=== PATIENT | male | born 1990 | race Caucasian/White ===

== ENCOUNTER 2020-07-28 22:16 | Emergency (ER) | payer OTHER ==
[~2020-07-28] VITALS: Ht 177.8 cm; Wt 79.2 kg
--- NOTE | 2020-07-28 22:45 | NUR ---
pt reports coming into ed today due to LLQ/RLQ abdominal pain and back pain. denies burning on urination. pt reports nausea and occassional vomitting, denies diarrhea, also states "well carlo been partying and drinking for the past week, i came out here from [facility] we had some deaths in the family from covid. i think the drive is why my back hurts." pt resting on gurney in gown, nad, appears comfortable, etoh odor noted. placed on spo2/bp monitoring. wctm. waiting for labs/rads.
[2020-07-28 22:58] LABS: BASOPHILS % (AUTO) 1 % (0-1); EOSINOPHILS % (AUTO) 1 % (1-7); LYMPHOCYTES % (AUTO) 41 % (22-44); MEAN CORPUSCULAR HEMOGLOBIN 33.7 pg (27.5-34.5); MEAN CORPUSCULAR HGB CONC 34.6 g/dL (33.2-36.2); MEAN PLATELET VOLUME 7.3 fL (7.4-10.4); MONOCYTES % (AUTO) 16 % (2-9); NEUTROPHILS % (AUTO) 41 % (42-75); PLATELET COUNT 95 x10^3/uL (130-400); RED BLOOD COUNT 4.47 x10^6/uL (4.38-5.82); RED CELL DISTRIBUTION WIDTH 13.9 % (9.4-14.8)
[2020-07-28 22:59] LABS: MD NO
--- NOTE | 2020-07-28 23:03 | NUR ---
PT BACK FROM RADIOLOGY AT THIS TIME, NAD, RESTING ON GURNEY, APPEARS COMFORTABLE, VSS, PROVIDED URINAL FOR URINE SAMPLE. DENIES ADDITIONAL NEEDS, WCTM .
[2020-07-28] MEDS ORDERED: CLONAZEPAM PO (23:05)
[2020-07-28 23:12] LABS: ALANINE AMINOTRANSFERASE 187 U/L (12-78); ALBUMIN 4.5 g/dL (3.4-5.0); ANION GAP 12 mmol/L (5-15); CALCIUM 8.8 mg/dL (8.5-10.1); CHLORIDE 104 mmol/L (98-107); CREATININE 0.97 mg/dL (0.7-1.3)
[2020-07-28 23:22] LABS: ALKALINE PHOSPHATASE 69 U/L (45-117); TOTAL PROTEIN 8.3 g/dL (6.4-8.2)
[2020-07-28 23:34] LABS: MICROSCOPIC INDICATED
[2020-07-28] MEDS ORDERED: POTASSIUM CHLORIDE 20 MEQ TAB.ER.PRT ONE (23:54)
[2020-07-28 23:58] VITALS: BP 139/96
[2020-07-29] MEDS ORDERED: POTASSIUM CHLORIDE 20 MEQ TAB.ER.PRT PO ONE
--- NOTE | 2020-07-29 00:15 | NUR ---
Patient given discharge instructions and they have confirmed that they understand the instructions. Patient ambulatory with steady gait. NAD, DENIES ADDITIONAL QUESTIONS OR NEEDS AT THIS TIME. NO PERSONAL BELONGINGS LEFT IN ROOM AFTER DC.
== END 2020-07-29 00:17 | disposition home or self-care (01) ==
LOC: ED 22:46
DX: K85.20 Alcohol induced acute pancreatitis without necrosis or infection (principal); F10.10 Alcohol abuse, uncomplicated; K59.00 Constipation, unspecified; R10.9 Unspecified abdominal pain; E87.6 Hypokalemia; Y90.0 Blood alcohol level of less than 20 mg/100 ml
CPT/HCPCS: 36415; 74021; 80053; 81001; 83690; 85025; 87086; 99284

== ENCOUNTER 2020-08-14 16:11 | Inpatient (IN) | payer SELFPAY ==
[~2020-08-14] VITALS: Ht 177.8 cm; Wt 84.3 kg
[~2020-08-14 16:11] MED LIST: CLONAZEPAM PO
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
[2020-08-14] MEDS ORDERED: SODIUM CHLORIDE FLUSH 10ML SYR IVF ONE (17:30)
[2020-08-14] MEDS ORDERED: LORazepam 2 MG/ML, 1ML IV ONE (17:30)
[2020-08-14] MEDS ORDERED: SODIUM CHLORIDE 0.9% 1,000 ML IV ONE (17:30)
[2020-08-14] MEDS ORDERED: MAGNESIUM SULFATE 1 GM, THIAMINE 100 MG, FOLIC ACID 1 MG in SODIUM CHLORIDE 0.9% 1,000 ML IV ONE (17:30)
[2020-08-14] MEDS ORDERED: FAMOTIDINE 20 MG/2 ML IVPush ONE (17:30)
--- NOTE | 2020-08-14 17:34 | NUR ---
PT SITTNG IN BED NO DISTRESS
[2020-08-14] MEDS ORDERED: FAMOTIDINE 20 MG/2 ML ONE (17:36)
[2020-08-14] MEDS ORDERED: LORazepam 2 MG/ML, 1ML ONE ×2 (17:36→20:54)
--- NOTE | 2020-08-14 17:43 | NUR ---
ADMIN MEDS NO DISTRESS
--- NOTE | 2020-08-14 18:31 | NUR ---
PT IN BED, MED REC COMPLETE.
[2020-08-14 18:33] LABS: BASOPHILS % (AUTO) 2 % (0-1); EOSINOPHILS % (AUTO) 0 % (1-7); LYMPHOCYTES % (AUTO) 14 % (22-44); MEAN CORPUSCULAR HEMOGLOBIN 34.6 pg (27.5-34.5); MEAN PLATELET VOLUME 7.1 fL (7.4-10.4); MONOCYTES % (AUTO) 10 % (2-9); NEUTROPHILS % (AUTO) 75 % (42-75); PLATELET COUNT 85 x10^3/uL (130-400); RED BLOOD COUNT 4.54 x10^6/uL (4.38-5.82); RED CELL DISTRIBUTION WIDTH 16.2 % (9.4-14.8)
[2020-08-14 18:42] LABS: ANION GAP 18 mmol/L (5-15); CALCIUM 7.9 mg/dL (8.5-10.1); CHLORIDE 107 mmol/L (98-107)
[2020-08-14 18:45] LABS: ALANINE AMINOTRANSFERASE 168 U/L (12-78); ALKALINE PHOSPHATASE 69 U/L (45-117); BILIRUBIN,TOTAL 1.1 mg/dL (0.2-1.0); CREATININE 0.96 mg/dL (0.7-1.3); TOTAL PROTEIN 8.2 g/dL (6.4-8.2)
[2020-08-14 19:07] LABS: ACETONE, SERUM Large (80mg/dL) (Negative)
[2020-08-14 19:18] LABS: MD SCAN
[2020-08-14] MEDS: D5%-LACTATED RINGERS 1,000 ML IV SCH ×2 (19:26→23:36)
--- NOTE | 2020-08-14 19:28 | NUR ---
PT IN BED, NO DISTRESS,
[2020-08-14 19:51] LABS: INTERNATIONAL NORMALIZED RATIO 0.96 (0.93-1.1); PROTHROMBIN TIME 10.3 Seconds (9.6-11.5)
--- NOTE | 2020-08-14 20:35 | NUR ---
PT IN BED NO DISTRESS
[2020-08-14] MEDS: LORazepam 2 MG/ML, 1ML IV PRN (20:58)
--- NOTE | 2020-08-14 20:59 | NUR ---
ADMIN ANXITY MED. CWIA 9. VSS
[2020-08-14] MEDS ORDERED: LORazepam 2 MG/ML, 1ML IV PRN ×2 (21:00)
[2020-08-14] MEDS ORDERED: ALUMINUM/MAG/SIMETHICONE 30 ML UDC PO PRN (21:00)
[2020-08-14] MEDS ORDERED: BISACODYL 10 MG SUPP PR PRN (21:00)
[2020-08-14] MEDS ORDERED: ONDANSETRON 2MG/ML, 2ML IV PRN (21:00)
[2020-08-14] MEDS ORDERED: POTASSIUM CHLORIDE 20 MEQ, MAGNESIUM SULFATE 1 GM, FOLIC ACID 1 MG, THIAMINE 200 MG in ... IV SCH (21:00)
[2020-08-14] MEDS ORDERED: MAALOX/HYOSCYAMINE/LIDOCAINE 45 ML BTL ONE (22:07)
--- NOTE | 2020-08-14 22:29 | NUR ---
pt a&ox4, says he is getting a little anxious at this time. iv site x2 intact, no swelling, no redness. pt on cr monitor. no acute distress at this time.
[2020-08-14 22:59] VITALS: BP 169/112
[2020-08-14] MEDS: DIPHENHYDRAMINE 50 MG CAPSULE PO PRN (23:09)
[2020-08-14] MEDS: LACTATED RINGERS 1,000 ML IV SCH (23:41)
[2020-08-14] MEDS ORDERED: POTASSIUM CHLORIDE 20 MEQ, MAGNESIUM SULFATE 1 GM, FOLIC ACID 1 MG, THIAMINE 200 MG, MV... IV SCH (23:48)
[2020-08-15 00:06] VITALS: BP 145/95
[2020-08-15] MEDS: LORazepam 2 MG/ML, 1ML IV PRN ×5 (02:54→19:28)
[2020-08-15 05:09] LABS: BASOPHILS % (AUTO) 1 % (0-1); EOSINOPHILS % (AUTO) 1 % (1-7); LYMPHOCYTES % (AUTO) 31 % (22-44); MEAN CORPUSCULAR HEMOGLOBIN 34.2 pg (27.5-34.5); MEAN CORPUSCULAR HGB CONC 33.7 g/dL (33.2-36.2); MEAN PLATELET VOLUME 7.4 fL (7.4-10.4); MONOCYTES % (AUTO) 13 % (2-9); NEUTROPHILS % (AUTO) 54 % (42-75); PLATELET COUNT 65 x10^3/uL (130-400); RED BLOOD COUNT 3.94 x10^6/uL (4.38-5.82); RED CELL DISTRIBUTION WIDTH 16.4 % (9.4-14.8)
[2020-08-15 05:11] LABS: MD NO
[2020-08-15 05:26] LABS: ALBUMIN 3.5 g/dL (3.4-5.0); ANION GAP 12 mmol/L (5-15); CHLORIDE 103 mmol/L (98-107)
[2020-08-15 05:31] LABS: ALANINE AMINOTRANSFERASE 142 U/L (12-78); ALKALINE PHOSPHATASE 56 U/L (45-117); BILIRUBIN,TOTAL 1.8 mg/dL (0.2-1.0); CREATININE 0.84 mg/dL (0.7-1.3); TOTAL PROTEIN 6.8 g/dL (6.4-8.2)
[2020-08-15] MEDS: LACTATED RINGERS 1,000 ML IV SCH ×3 (08:01→23:30)
[2020-08-15 08:34] VITALS: BP 166/110
[2020-08-15] MEDS: CHLORDIAZEPOXIDE 25 MG CAPSULE PO SCH ×3 (11:39→21:15)
[2020-08-15 14:20] VITALS: BP 166/105
[2020-08-15 19:14] VITALS: BP 159/114
[2020-08-15] MEDS ORDERED: MULTIVITAMIN 1 TABLET PO SCH ×2 (20:32→21:00)
[2020-08-15] MEDS ORDERED: POTASSIUM CHLORIDE 20 MEQ, MAGNESIUM SULFATE 1 GM, FOLIC ACID 1 MG, THIAMINE 200 MG in ... IV SCH (21:00)
[2020-08-15] MEDS: DIPHENHYDRAMINE 50 MG CAPSULE PO PRN (21:15)
[2020-08-15 22:10] VITALS: BP 154/104
[2020-08-16] MEDS: LORazepam 2 MG/ML, 1ML IV PRN ×7 (00:35→23:57)
[2020-08-16 00:53] VITALS: BP 159/121
[2020-08-16] MEDS: POTASSIUM CHLORIDE 20 MEQ, MAGNESIUM SULFATE 1 GM, FOLIC ACID 1 MG, THIAMINE 200 MG, MV... IV SCH (00:57)
[2020-08-16 04:45] LABS: BASOPHILS % (AUTO) 1 % (0-1); EOSINOPHILS % (AUTO) 1 % (1-7); LYMPHOCYTES % (AUTO) 24 % (22-44); MEAN CORPUSCULAR HEMOGLOBIN 34.2 pg (27.5-34.5); MEAN CORPUSCULAR HGB CONC 34.3 g/dL (33.2-36.2); MEAN PLATELET VOLUME 8.5 fL (7.4-10.4); MONOCYTES % (AUTO) 9 % (2-9); NEUTROPHILS % (AUTO) 65 % (42-75); PLATELET COUNT 51 x10^3/uL (130-400); RED BLOOD COUNT 4.19 x10^6/uL (4.38-5.82)
[2020-08-16 04:50] LABS: MD NO
[2020-08-16 04:53] LABS: CALCIUM 9.2 mg/dL (8.5-10.1); CHLORIDE 100 mmol/L (98-107)
[2020-08-16 05:23] LABS: ALANINE AMINOTRANSFERASE 209 U/L (12-78); ALBUMIN 3.8 g/dL (3.4-5.0); ALKALINE PHOSPHATASE 65 U/L (45-117); ANION GAP 13 mmol/L (5-15); BILIRUBIN,TOTAL 2.6 mg/dL (0.2-1.0); CREATININE 0.78 mg/dL (0.7-1.3); TOTAL PROTEIN 7.4 g/dL (6.4-8.2)
[2020-08-16] MEDS: CHLORDIAZEPOXIDE 25 MG CAPSULE PO SCH (05:53)
[2020-08-16 08:18] VITALS: BP 130/81
[2020-08-16] MEDS ORDERED: POTASSIUM CHLORIDE 20 MEQ TAB.ER.PRT PO ONE (09:00)
[2020-08-16] MEDS: LACTATED RINGERS 1,000 ML IV SCH ×2 (09:03→17:28)
[2020-08-16 13:22] VITALS: BP 141/107
[2020-08-16 19:14] VITALS: BP 151/104
[2020-08-16] MEDS: CHLORDIAZEPOXIDE 10 MG CAPSULE PO PRN (21:16)
[2020-08-16 22:32] VITALS: BP 164/118
[2020-08-17 00:08] VITALS: BP 160/112
[2020-08-17 01:02] VITALS: BP 139/83
[2020-08-17] MEDS: LACTATED RINGERS 1,000 ML IV SCH ×2 (01:31→09:04)
[2020-08-17] MEDS: POTASSIUM CHLORIDE 20 MEQ, MAGNESIUM SULFATE 1 GM, FOLIC ACID 1 MG, THIAMINE 200 MG, MV... IV SCH (02:14)
[2020-08-17 07:03] LABS: BASOPHILS % (AUTO) 1 % (0-1); EOSINOPHILS % (AUTO) 5 % (1-7); LYMPHOCYTES % (AUTO) 34 % (22-44); MEAN CORPUSCULAR HEMOGLOBIN 34.4 pg (27.5-34.5); MEAN CORPUSCULAR HGB CONC 34.2 g/dL (33.2-36.2); MEAN PLATELET VOLUME 8.3 fL (7.4-10.4); MONOCYTES % (AUTO) 12 % (2-9); NEUTROPHILS % (AUTO) 48 % (42-75); PLATELET COUNT 54 x10^3/uL (130-400); RED BLOOD COUNT 4.25 x10^6/uL (4.38-5.82); RED CELL DISTRIBUTION WIDTH 15.6 % (9.4-14.8)
[2020-08-17 07:05] LABS: MD NO
[2020-08-17 07:12] LABS: ALANINE AMINOTRANSFERASE 221 U/L (12-78); ALBUMIN 3.5 g/dL (3.4-5.0); ANION GAP 8 mmol/L (5-15); CALCIUM 8.8 mg/dL (8.5-10.1); CHLORIDE 106 mmol/L (98-107); CREATININE 0.66 mg/dL (0.7-1.3)
[2020-08-17 07:14] LABS: ALKALINE PHOSPHATASE 65 U/L (45-117); TOTAL PROTEIN 7.2 g/dL (6.4-8.2)
[2020-08-17 07:15] VITALS: BP 153/102
[2020-08-17] MEDS: CHLORDIAZEPOXIDE 10 MG CAPSULE PO PRN (07:28)
[2020-08-17] MEDS ORDERED: THIA100T67 PO (11:26)
[2020-08-17] MEDS ORDERED: FOLI1TAB32 PO (11:26)
== END 2020-08-17 13:43 | disposition home or self-care (01) | DRG 432 ==
LOC: ED 18:10 → EDIP 20:03 → 3N 22:50 → DCLOUNGE 08-17 13:37
PROVIDERS: ADMIT Family Medicine; ATTEND Family Medicine
DX: K70.10 Alcoholic hepatitis without ascites (principal); K22.6 Gastro-esophageal laceration-hemorrhage syndrome; K85.90 Acute pancreatitis without necrosis or infection, unspecified; K85.20 Alcohol induced acute pancreatitis without necrosis or infection; E87.2 Acidosis; F10.239 Alcohol dependence with withdrawal, unspecified; K29.20 Alcoholic gastritis without bleeding; D69.6 Thrombocytopenia, unspecified; D72.819 Decreased white blood cell count, unspecified; D75.89 Other specified diseases of blood and blood-forming organs; F41.9 Anxiety disorder, unspecified; I10 Essential (primary) hypertension; K76.0 Fatty (change of) liver, not elsewhere classified; Z88.0 Allergy status to penicillin
CPT/HCPCS: 36415; 96361; 96374; 96375; 99291; J7121; 76700; 80053; 80074; 80320; 82010; 82607; 83690; 83735; 84443; 85025; 85610; G0378; J3411; J3475; J3480; G0480; J2060; J7030; J7120

== ENCOUNTER 2020-09-24 22:42 | Emergency (ER) | payer SELFPAY ==
[~2020-09-24] VITALS: Ht 177.8 cm; Wt 83.0 kg
[~2020-09-24 22:42] MED LIST changes: +FOLI1TAB32 PO; +THIA100T67 PO
[2020-09-24 22:43] VITALS: BP 151/108
[2020-09-24] MEDS ORDERED: LORazepam 1MG TABLET ONE (22:57)
[2020-09-24] MEDS ORDERED: LORazepam 1MG TABLET PO ONE (23:00)
[2020-09-24 23:19] LABS: BASOPHILS % (AUTO) 1 % (0-1); EOSINOPHILS % (AUTO) 2 % (1-7); LYMPHOCYTES % (AUTO) 37 % (22-44); MEAN CORPUSCULAR HEMOGLOBIN 34.4 pg (27.5-34.5); MEAN CORPUSCULAR HGB CONC 34.4 g/dL (33.2-36.2); MEAN PLATELET VOLUME 7.4 fL (7.4-10.4); MONOCYTES % (AUTO) 9 % (2-9); NEUTROPHILS % (AUTO) 52 % (42-75); PLATELET COUNT 117 x10^3/uL (130-400); RED CELL DISTRIBUTION WIDTH 14.9 % (9.4-14.8)
[2020-09-24 23:22] LABS: MD NO
[2020-09-24 23:28] LABS: ALANINE AMINOTRANSFERASE 112 U/L (12-78); ALBUMIN 4.3 g/dL (3.4-5.0); ANION GAP 10 mmol/L (5-15); CALCIUM 8.3 mg/dL (8.5-10.1); CHLORIDE 109 mmol/L (98-107)
--- NOTE | 2020-09-24 23:28 | NUR ---
Pt has bottle of klonopin in his pocket. Says he doesn't take them. VSS.
[2020-09-24 23:31] LABS: ALKALINE PHOSPHATASE 60 U/L (45-117); BILIRUBIN,TOTAL 0.5 mg/dL (0.2-1.0); TOTAL PROTEIN 8.2 g/dL (6.4-8.2)
--- NOTE | 2020-09-25 00:14 | NUR ---
Patient given discharge instructions and they have confirmed that they understand the instructions. Patient ambulatory with steady gait. Pt given taxi voucher upon d/c
== END 2020-09-25 00:15 | disposition home or self-care (01) ==
LOC: ED 23:44
DX: F10.20 Alcohol dependence, uncomplicated (principal); F41.1 Generalized anxiety disorder; I10 Essential (primary) hypertension; F17.210 Nicotine dependence, cigarettes, uncomplicated; Y90.0 Blood alcohol level of less than 20 mg/100 ml
CPT/HCPCS: 36415; 80053; 85025; 99283

== ENCOUNTER 2020-10-10 20:16 | Emergency (ER) | payer OTHER ==
[2020-10-10 20:19] VITALS: BP 139/96
--- NOTE | 2020-10-10 20:25 | NUR ---
pt bib [facility] from [facility] to be seen for intoxication. pt had a 0.48 at the facility of [facility]. pt wants to detox, and can go back to [facility] to detox per the facility if cleared by the doc.
[2020-10-10 20:45] LABS: BASOPHILS % (AUTO) 1 % (0-1); EOSINOPHILS % (AUTO) 1 % (1-7); LYMPHOCYTES % (AUTO) 26 % (22-44); MEAN CORPUSCULAR HEMOGLOBIN 34.5 pg (27.5-34.5); MEAN CORPUSCULAR HGB CONC 34.2 g/dL (33.2-36.2); MEAN PLATELET VOLUME 7.2 fL (7.4-10.4); MONOCYTES % (AUTO) 11 % (2-9); NEUTROPHILS % (AUTO) 62 % (42-75); PLATELET COUNT 132 x10^3/uL (130-400); RED BLOOD COUNT 4.91 x10^6/uL (4.38-5.82); RED CELL DISTRIBUTION WIDTH 14.9 % (9.4-14.8)
--- NOTE | 2020-10-10 20:53 | NUR ---
PT ASKED STAFF TO CALL HIS PARENTS AND GIVE THEM AN UPDATE THEY ARE FROM [place], [place]. PT'S FATHER ON THE PHONE AND UPDATED WITH THE PERMISSION OF THE PATIENT. MASTER CRAFTSMAN TO BEDSIDE TO DRAW BLOOD.
[2020-10-10 20:56] LABS: ANION GAP 13 mmol/L (5-15); CALCIUM 8.6 mg/dL (8.5-10.1); CHLORIDE 105 mmol/L (98-107); CREATININE 1.04 mg/dL (0.7-1.3); MD NO
[2020-10-10 20:57] LABS: ALANINE AMINOTRANSFERASE 115 U/L (12-78); ALBUMIN 4.6 g/dL (3.4-5.0); SALICYLATE LEVEL 2.4 mg/dL (2.8-20.0)
[2020-10-10 20:58] LABS: ALKALINE PHOSPHATASE 63 U/L (45-117); BILIRUBIN,TOTAL 0.8 mg/dL (0.2-1.0); TOTAL PROTEIN 8.9 g/dL (6.4-8.2)
[2020-10-10] MEDS ORDERED: ONDANSETRON ODT 4 MG ONE (22:18)
[2020-10-10] MEDS ORDERED: ONDANSETRON ODT 4 MG PO ONE (22:30)
--- NOTE | 2020-10-10 22:31 | NUR ---
PT AWAKE AND ALERT, AND F/U AND D/C INSTRUCTIONS TO [facility] GIVEN, AND PT UNDERSTANDS. [facility] CALLED AND PT SENT TO [facility], AMBULATORY
== END 2020-10-10 22:51 | disposition home or self-care (01) ==
LOC: ED 21:59
DX: F10.220 Alcohol dependence with intoxication, uncomplicated (principal); R94.5 Abnormal results of liver function studies; I10 Essential (primary) hypertension; R00.0 Tachycardia, unspecified; Y90.0 Blood alcohol level of less than 20 mg/100 ml
CPT/HCPCS: 36415; 80053; 80143; 80320; 85025; 93005; 99284; Q0162; 80179; G0480

== ENCOUNTER 2020-11-12 19:00 | Emergency (ER) | payer SELFPAY ==
[~2020-11-12] VITALS: Ht 180.3 cm; Wt 95.0 kg
[2020-11-12 19:02] VITALS: BP 122/78
[2020-11-12] MEDS ORDERED: SODIUM CHLORIDE FLUSH 10ML SYR IVF ONE (19:30)
[2020-11-12] MEDS ORDERED: SODIUM CHLORIDE 0.9% 1,000ML IVBOLUS ONE (19:30)
[2020-11-12] MEDS ORDERED: THIAMINE 100MG TABLET PO ONE (19:30)
--- NOTE | 2020-11-12 19:34 | NUR ---
PT BIB [facility], C/O NOT "FEELING WELL". PT STATES HE IS AN ALCOHOLIC AND DRINKS APPROX 1/5 OF VODKA PER DAY. PT FUNCTIONAL, AMBULATORY. PT HAD A LONG OPEN BLADE KNIFE THAT WAS TAKEN AND GIVEN TO SECURITY FOR SAFE KEEPING UNTIL PT IS DISCHARGED. PT STATES HE JUST GOT BACK FROM [place], AND IT DIDN'T HELP. MD TO BEDSIDE TO JANA PT.
[2020-11-12 19:41] LABS: BASOPHILS % (AUTO) 1 % (0-1); EOSINOPHILS % (AUTO) 1 % (1-7); LYMPHOCYTES % (AUTO) 36 % (22-44); MEAN CORPUSCULAR HEMOGLOBIN 33.6 pg (27.5-34.5); MEAN CORPUSCULAR HGB CONC 34.4 g/dL (33.2-36.2); MEAN PLATELET VOLUME 7.2 fL (7.4-10.4); MONOCYTES % (AUTO) 11 % (2-9); NEUTROPHILS % (AUTO) 51 % (42-75); PLATELET COUNT 164 x10^3/uL (130-400); RED BLOOD COUNT 4.82 x10^6/uL (4.38-5.82); RED CELL DISTRIBUTION WIDTH 13.7 % (9.4-14.8)
[2020-11-12 19:43] LABS: MD NO
--- NOTE | 2020-11-12 19:43 | NUR ---
PIV STARTED TO RIGHT HAND. PT TOLERATED WELL. NO DISTRESS AT THIS TIME.
[2020-11-12 19:46] LABS: ALANINE AMINOTRANSFERASE 69 U/L (12-78); ANION GAP 11 mmol/L (5-15); CALCIUM 8.3 mg/dL (8.5-10.1); CHLORIDE 112 mmol/L (98-107); CREATININE 1.21 mg/dL (0.7-1.3)
[2020-11-12 19:47] LABS: ALBUMIN 4.2 g/dL (3.4-5.0)
[2020-11-12 19:49] LABS: ALKALINE PHOSPHATASE 60 U/L (45-117); BILIRUBIN,TOTAL 0.5 mg/dL (0.2-1.0); TOTAL PROTEIN 7.9 g/dL (6.4-8.2)
[2020-11-12] MEDS ORDERED: THIAMINE 100MG TABLET ONE (19:52)
[2020-11-12] MEDS ORDERED: ONDANSETRON ODT 4 MG ONE (20:16)
--- NOTE | 2020-11-12 20:23 | NUR ---
PT A&OX4, FUNCTIONAL, AND TOOK HIS PO MEDS WELL, NO EMESIS, NO DISTRESS. IV FINISHED. AWARE.
[2020-11-12] MEDS ORDERED: ONDANSETRON ODT 4 MG PO ONE (20:30)
--- NOTE | 2020-11-12 20:33 | NUR ---
PT A&OX4, AMBULATORY AND IN NO ACUTE DISTRESS. F/U AND D/C INSTRUCTIONS GIVEN TO PT AND HE V/U. PT STATES HE WILL TRY AND FOLLOW UP. PT D/C'D WITHOUT INCIDENT. PIV TO RIGHT HAND D/C'D WITH CATH INTACT, NO ISSUES.
== END 2020-11-12 20:49 | disposition home or self-care (01) ==
LOC: ED 20:35
DX: F10.129 Alcohol abuse with intoxication, unspecified (principal); R00.0 Tachycardia, unspecified; I10 Essential (primary) hypertension; Y90.0 Blood alcohol level of less than 20 mg/100 ml
CPT/HCPCS: 36415; 80053; 85025; 93005; 96360; 99284; J7030; Q0162

== ENCOUNTER 2020-11-17 12:51 | Emergency (ER) | payer MEDICAID ==
[~2020-11-17] VITALS: Ht 180.3 cm; Wt 82.0 kg
[2020-11-17] MEDS ORDERED: PANTOPRAZOLE 40 MG IV IV ONE (13:30)
[2020-11-17] MEDS ORDERED: SODIUM CHLORIDE FLUSH 10ML SYR IVF ONE (13:30)
[2020-11-17] MEDS ORDERED: PANTOPRAZOLE 40 MG IV ONE (13:30)
[2020-11-17] MEDS ORDERED: ONDANSETRON 2MG/ML, 2ML ONE ×2 (13:30→15:33)
[2020-11-17] MEDS ORDERED: SODIUM CHLORIDE 0.9% 1,000 ML IV ONE (13:30)
[2020-11-17] MEDS ORDERED: ONDANSETRON 2MG/ML, 2ML IVPush ONE ×2 (13:30→16:00)
--- NOTE | 2020-11-17 13:30 | NUR ---
ASSUMED CARE OF PT. THIS IS 30 YOM, BIB EMS W/ C/O N/V, DARK TARRY STOOLS. INTERMITTENT HEMATAEMESIS. 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 PIV STARTED, LABS DRAWN. PT RESTING ON Time To Cater CALL LIGHT WITHIN REACH. RESP EVEN AND UNLABORED. NADN.
--- NOTE | 2020-11-17 13:36 | NUR ---
PT AT RAD.
[2020-11-17 13:44] LABS: BASOPHILS % (AUTO) 1 % (0-1); EOSINOPHILS % (AUTO) 2 % (1-7); LYMPHOCYTES % (AUTO) 25 % (22-44); MEAN CORPUSCULAR HEMOGLOBIN 33.9 pg (27.5-34.5); MEAN CORPUSCULAR HGB CONC 34.6 g/dL (33.2-36.2); MEAN PLATELET VOLUME 7.2 fL (7.4-10.4); MONOCYTES % (AUTO) 10 % (2-9); NEUTROPHILS % (AUTO) 62 % (42-75); PLATELET COUNT 135 x10^3/uL (130-400); RED BLOOD COUNT 4.77 x10^6/uL (4.38-5.82); RED CELL DISTRIBUTION WIDTH 13.7 % (9.4-14.8)
[2020-11-17 13:49] LABS: ALBUMIN 4.4 g/dL (3.4-5.0); ANION GAP 8 mmol/L (5-15); CALCIUM 9.5 mg/dL (8.5-10.1); CHLORIDE 107 mmol/L (98-107)
[2020-11-17 13:51] LABS: MD NO
[2020-11-17 13:54] LABS: ALANINE AMINOTRANSFERASE 53 U/L (12-78); ALKALINE PHOSPHATASE 64 U/L (45-117); BILIRUBIN,TOTAL 0.6 mg/dL (0.2-1.0); CREATININE 0.96 mg/dL (0.7-1.3); TOTAL PROTEIN 8.3 g/dL (6.4-8.2)
[2020-11-17 14:56] LABS: MICROSCOPIC INDICATED
--- NOTE | 2020-11-17 15:37 | NUR ---
PT ANXIOUS AND REPORTS THAT HIS [place]A DID NOT IMPROVE WITH LAST ROUND OF MEDICATION AND HE IS HAVING BLURRIED VISION. PA NOTIFIED AND MEDICATION ADMINSTERED ORDERED.
[2020-11-17 16:12] VITALS: BP 117/78
--- NOTE | 2020-11-17 16:50 | NUR ---
Patient given discharge instructions and they have confirmed that they understand the instructions. Patient ambulatory with steady gait. Pt provided resource to help support stopping from drinking.
== END 2020-11-17 17:02 | disposition home or self-care (01) ==
LOC: ED 16:56
DX: K29.20 Alcoholic gastritis without bleeding (principal); F10.10 Alcohol abuse, uncomplicated; R11.2 Nausea with vomiting, unspecified; I10 Essential (primary) hypertension; Y90.0 Blood alcohol level of less than 20 mg/100 ml
CPT/HCPCS: 36415; 74021; 80053; 81001; 83690; 85025; 93005; 96361; 96374; 96375; 96376; 99285; C9113; J2405; J7030

== ENCOUNTER 2020-11-27 14:53 | Inpatient (IN) | payer MEDICAID ==
[~2020-11-27] VITALS: Ht 180.3 cm; Wt 88.0 kg
--- NOTE | 2020-11-27 15:04 | NUR ---
BIB [facility]. PT C/O N/V STARTING THIS AM, +BLOOD IN VOMIT. +ETOH, 1 PINT AND COUPLE BEERS. UNIT SECY [facility]: PIV 18G RAC, 250ML NS, 4 ZOFRAN. FSBG 156 PT CONNECTED TO MONITORING. EKG COMPLETE. FALL PRECAUTIONS IN PLACE. CALL LIGHT IN REACH.
[2020-11-27 15:39] LABS: BASOPHILS % (AUTO) 1 % (0-1); EOSINOPHILS % (AUTO) 2 % (1-7); LYMPHOCYTES % (AUTO) 30 % (22-44); MEAN CORPUSCULAR HEMOGLOBIN 33.6 pg (27.5-34.5); MEAN CORPUSCULAR HGB CONC 34.1 g/dL (33.2-36.2); MEAN PLATELET VOLUME 6.9 fL (7.4-10.4); MONOCYTES % (AUTO) 12 % (2-9); NEUTROPHILS % (AUTO) 55 % (42-75); PLATELET COUNT 120 x10^3/uL (130-400); RED BLOOD COUNT 4.58 x10^6/uL (4.38-5.82); RED CELL DISTRIBUTION WIDTH 14.5 % (9.4-14.8)
[2020-11-27] MEDS ORDERED: ONDANSETRON 2MG/ML, 2ML ONE (15:43)
[2020-11-27 15:45] LABS: MD NO
[2020-11-27 15:49] LABS: ALANINE AMINOTRANSFERASE 85 U/L (12-78); ALBUMIN 4.1 g/dL (3.4-5.0); ANION GAP 9 mmol/L (5-15); CALCIUM 8.8 mg/dL (8.5-10.1); CHLORIDE 106 mmol/L (98-107); CREATININE 0.91 mg/dL (0.7-1.3)
[2020-11-27 15:51] LABS: ALKALINE PHOSPHATASE 53 U/L (45-117); BILIRUBIN,TOTAL 0.6 mg/dL (0.2-1.0); TOTAL PROTEIN 7.6 g/dL (6.4-8.2)
[2020-11-27 16:00] LABS: INTERNATIONAL NORMALIZED RATIO 0.93 (0.93-1.1); PROTHROMBIN TIME 9.8 Seconds (9.6-11.5)
[2020-11-27] MEDS ORDERED: PANTOPRAZOLE 80 MG in SODIUM CHLORIDE 0.9% 50 ML IVPB ONE (16:00)
[2020-11-27] MEDS ORDERED: SODIUM CHLORIDE FLUSH 10ML SYR IVF ONE (16:00)
[2020-11-27] MEDS ORDERED: ONDANSETRON 2MG/ML, 2ML IVPush ONE (16:00)
[2020-11-27] MEDS ORDERED: OCTREOTIDE 500 MCG in SODIUM CHLORIDE 0.9% 99 ML IV PRN ×2 (16:00→20:00)
[2020-11-27] MEDS ORDERED: OCTREOTIDE 100MCG/ML, 1ML (0.1MG/ML) IV ONE (16:00)
[2020-11-27] MEDS ORDERED: SODIUM CHLORIDE 0.9% 1,000ML IVBOLUS ONE (16:00)
--- NOTE | 2020-11-27 16:15 | NUR ---
SECOND PIV PLACED BY DRAPERY HEAD FORMER FOR MANAGER MOLECULAR. MEDS ADMIN PER SEP. IVF RUNNING. PT HAS NOT VOMITTED SINCE ARRIVAL. PT CONNECTED TO MONITORING. CALL LIGHT IN REACH. HOSPITALIST AT BEDSIDE FOR ASSESSMENT.
[2020-11-27] MEDS ORDERED: PANTOPRAZOLE 80 MG in SODIUM CHLORIDE 0.9% 100 ML IV SCH ×2 (16:30→20:00)
[2020-11-27] MEDS ORDERED: CHLORDIAZEPOXIDE 25 MG CAPSULE PO PRN (16:30)
[2020-11-27] MEDS ORDERED: MORPHINE SULFATE 4 MG/ML, 1ML IVPush PRN (16:30)
[2020-11-27] MEDS ORDERED: THIAMINE 200 MG in DEXTROSE 5% 50 ML IVPB ONE (16:30)
[2020-11-27] MEDS: SODIUM CHLORIDE 0.9% 1,000 ML IV SCH (16:30)
[2020-11-27 18:36] VITALS: BP 118/78
[2020-11-27] MEDS ORDERED: THIAMINE 100MG TABLET PO ONE (19:30)
[2020-11-27] MEDS: CHLORDIAZEPOXIDE 10 MG CAPSULE PO PRN (20:17)
[2020-11-27 22:02] LABS: AMPHETAMINE SCREEN, URINE Negative (Negative); BARBITURATE SCREEN, URINE Negative (Negative); BENZODIAZEPINE SCREEN, URINE Positive (Negative); CANNABINOID SCREEN, URINE Negative (Negative); COCAINE SCREEN, URINE Negative (Negative); METHADONE SCREEN, URINE Negative (Negative); OPIATE SCREEN, URINE Negative (Negative)
[2020-11-28] MEDS: SODIUM CHLORIDE 0.9% 1,000 ML IV SCH ×4 (00:50→23:24)
[2020-11-28] MEDS: CHLORDIAZEPOXIDE 10 MG CAPSULE PO PRN (00:50)
[2020-11-28 01:26] VITALS: BP 114/74
[2020-11-28] MEDS: CHLORDIAZEPOXIDE 25 MG CAPSULE PO PRN ×4 (04:10→21:22)
[2020-11-28 06:08] LABS: BASOPHILS % (AUTO) 1 % (0-1); EOSINOPHILS % (AUTO) 3 % (1-7); LYMPHOCYTES % (AUTO) 27 % (22-44); MEAN CORPUSCULAR HEMOGLOBIN 33.9 pg (27.5-34.5); MEAN CORPUSCULAR HGB CONC 34.5 g/dL (33.2-36.2); MEAN PLATELET VOLUME 7.3 fL (7.4-10.4); MONOCYTES % (AUTO) 12 % (2-9); NEUTROPHILS % (AUTO) 57 % (42-75); PLATELET COUNT 104 x10^3/uL (130-400); RED BLOOD COUNT 4.52 x10^6/uL (4.38-5.82)
[2020-11-28 06:11] LABS: ALBUMIN 3.9 g/dL (3.4-5.0); ANION GAP 12 mmol/L (5-15); CALCIUM 8.1 mg/dL (8.5-10.1); CHLORIDE 101 mmol/L (98-107)
[2020-11-28 06:12] LABS: MD NO
[2020-11-28 06:14] LABS: ALANINE AMINOTRANSFERASE 83 U/L (12-78); ALKALINE PHOSPHATASE 55 U/L (45-117); BILIRUBIN,TOTAL 1.4 mg/dL (0.2-1.0); CREATININE 0.86 mg/dL (0.7-1.3); TOTAL PROTEIN 7.5 g/dL (6.4-8.2)
[2020-11-28] MEDS ORDERED: LORazepam 2 MG/ML, 1ML IVPush ONE (07:00)
[2020-11-28 07:36] VITALS: BP 159/87
[2020-11-28] MEDS ORDERED: FENTANYL PF 100 MCG/2ML ONE (08:49)
[2020-11-28] MEDS ORDERED: MIDAZOLAM 1 MG/ML, 5ML ONE (08:49)
[2020-11-28] MEDS ORDERED: PROPOFOL 10 MG/ML, 20ML ONE (09:09)
[2020-11-28] MEDS ORDERED: HYDROmorphone 1 MG/ML, 1ML INJ IVPush PRN (09:30)
[2020-11-28] MEDS ORDERED: MIDAZOLAM 1 MG/ML, 2ML IV PRN (09:30)
[2020-11-28] MEDS ORDERED: HALOPERIDOL 5 MG/ML IV PRN (09:30)
[2020-11-28] MEDS ORDERED: LABETALOL 5MG/ML, 20ML IV PRN (09:30)
[2020-11-28] MEDS ORDERED: FENTANYL PF 100 MCG/2ML IV PRN (09:30)
[2020-11-28] MEDS ORDERED: ACETAMINOPHEN 325 MG TABLET PO PRN (09:30)
[2020-11-28] MEDS ORDERED: EPHEDRINE 50 MG/ML, 1ML IM PRN (09:30)
[2020-11-28] MEDS ORDERED: MEPERIDINE/PF 25MG/0.5ML IVPush PRN (09:30)
[2020-11-28] MEDS ORDERED: METHOCARBAMOL 1,000 MG in DEXTROSE 5% 100 ML IV PRN (09:30)
[2020-11-28] MEDS ORDERED: LORazepam 2 MG/ML, 1ML IVPush PRN (09:30)
[2020-11-28] MEDS ORDERED: hydrALAzine 20 MG/ML, 1ML IV PRN (09:30)
[2020-11-28] MEDS ORDERED: PROMETHAZINE 25 MG/ML, 1ML IVPush PRN (09:30)
[2020-11-28] MEDS ORDERED: OXYcodone 5 MG/5 ML ORAL.SOL UDC PO PRN (09:30)
[2020-11-28] MEDS ORDERED: ONDANSETRON 2MG/ML, 2ML IVPush PRN (09:30)
[2020-11-28 10:28] VITALS: BP 132/82
[2020-11-28] MEDS: OMEPRAZOLE 20 MG CAPSULE.DR PO SCH (10:39)
[2020-11-28] MEDS: SUCRALFATE 1 GM/10 ML UDC PO SCH ×3 (11:23→21:23)
[2020-11-28] MEDS: FOLIC ACID 1 MG TABLET PO SCH (11:24)
[2020-11-28 12:26] VITALS: BP 125/79
[2020-11-28 20:00] VITALS: BP 142/88
[2020-11-29] MEDS: CHLORDIAZEPOXIDE 25 MG CAPSULE PO PRN ×3 (01:17→14:04)
[2020-11-29 01:30] VITALS: BP 151/92
[2020-11-29] MEDS: SODIUM CHLORIDE 0.9% 1,000 ML IV SCH ×3 (05:11→22:30)
[2020-11-29 05:45] LABS: BASOPHILS % (AUTO) 1 % (0-1); EOSINOPHILS % (AUTO) 3 % (1-7); LYMPHOCYTES % (AUTO) 23 % (22-44); MEAN CORPUSCULAR HEMOGLOBIN 33.7 pg (27.5-34.5); MEAN CORPUSCULAR HGB CONC 34.7 g/dL (33.2-36.2); MEAN PLATELET VOLUME 7.6 fL (7.4-10.4); MONOCYTES % (AUTO) 12 % (2-9); NEUTROPHILS % (AUTO) 61 % (42-75); PLATELET COUNT 87 x10^3/uL (130-400); RED BLOOD COUNT 4.42 x10^6/uL (4.38-5.82); RED CELL DISTRIBUTION WIDTH 13.9 % (9.4-14.8)
[2020-11-29 05:46] LABS: MD NO
[2020-11-29 05:58] LABS: ALBUMIN 3.3 g/dL (3.4-5.0); ANION GAP 7 mmol/L (5-15); CALCIUM 8.1 mg/dL (8.5-10.1); CHLORIDE 105 mmol/L (98-107)
[2020-11-29 06:01] LABS: ALANINE AMINOTRANSFERASE 54 U/L (12-78); ALKALINE PHOSPHATASE 50 U/L (45-117); BILIRUBIN,TOTAL 1.2 mg/dL (0.2-1.0); CREATININE 0.67 mg/dL (0.7-1.3); TOTAL PROTEIN 6.5 g/dL (6.4-8.2)
[2020-11-29 06:41] VITALS: BP 138/96
[2020-11-29] MEDS: SUCRALFATE 1 GM/10 ML UDC PO SCH ×4 (06:53→21:00)
[2020-11-29] MEDS: OMEPRAZOLE 20 MG CAPSULE.DR PO SCH (08:43)
[2020-11-29] MEDS: FOLIC ACID 1 MG TABLET PO SCH (08:43)
[2020-11-29] MEDS: CHLORDIAZEPOXIDE 10 MG CAPSULE PO PRN ×3 (10:57→21:01)
[2020-11-29 12:20] VITALS: BP 132/85
[2020-11-29 19:56] VITALS: BP 135/83
[2020-11-30 00:43] VITALS: BP 151/81
[2020-11-30] MEDS ORDERED: LORazepam 2 MG/ML, 1ML IVPush ONE (01:00)
[2020-11-30] MEDS: SODIUM CHLORIDE 0.9% 1,000 ML IV SCH (05:01)
[2020-11-30 06:49] VITALS: BP 131/88
[2020-11-30] MEDS: OMEPRAZOLE 20 MG CAPSULE.DR PO SCH (08:28)
[2020-11-30] MEDS: SUCRALFATE 1 GM/10 ML UDC PO SCH ×4 (08:28→20:22)
[2020-11-30] MEDS: FOLIC ACID 1 MG TABLET PO SCH (08:28)
[2020-11-30 12:32] VITALS: BP 134/84
[2020-11-30] MEDS: CHLORDIAZEPOXIDE 10 MG CAPSULE PO PRN ×2 (16:39→20:28)
[2020-11-30 19:22] VITALS: BP 141/89
[2020-12-01 00:31] VITALS: BP 134/84
[2020-12-01] MEDS: CHLORDIAZEPOXIDE 10 MG CAPSULE PO PRN (01:05)
[2020-12-01 07:01] VITALS: BP 124/88
[2020-12-01] MEDS ORDERED: OMEP-110 PO (07:36)
[2020-12-01] MEDS ORDERED: SUCR1ORA5 PO (07:38)
[2020-12-01] MEDS: SUCRALFATE 1 GM/10 ML UDC PO SCH ×2 (07:52→11:00)
[2020-12-01] MEDS: OMEPRAZOLE 20 MG CAPSULE.DR PO SCH (07:52)
[2020-12-01] MEDS: FOLIC ACID 1 MG TABLET PO SCH (07:52)
== END 2020-12-01 11:52 | disposition home or self-care (01) | DRG 368 ==
LOC: ED 14:57 → EDIP 16:14 → 3N 17:58 → DCLOUNGE 12-01 11:48
PROVIDERS: ADMIT Internal Medicine Infectious Disease; ATTEND Hospitalist
PROC: 0DB68ZX Excision of Stomach, Via Natural or Artificial Opening Endoscopic, Diagnostic (ICD-10-PCS; principal; 2020-11-28 09:30)
DX: K21.01 Gastro-esophageal reflux disease with esophagitis, with bleeding (principal); K22.6 Gastro-esophageal laceration-hemorrhage syndrome; K22.11 Ulcer of esophagus with bleeding; K29.51 Unspecified chronic gastritis with bleeding; E87.1 Hypo-osmolality and hyponatremia; F10.239 Alcohol dependence with withdrawal, unspecified; D69.59 Other secondary thrombocytopenia; F10.229 Alcohol dependence with intoxication, unspecified; F17.200 Nicotine dependence, unspecified, uncomplicated; F41.9 Anxiety disorder, unspecified; I10 Essential (primary) hypertension; K70.9 Alcoholic liver disease, unspecified; K76.0 Fatty (change of) liver, not elsewhere classified; Y90.8 Blood alcohol level of 240 mg/100 ml or more; Z20.822 Contact with and (suspected) exposure to COVID-19; Z88.1 Allergy status to other antibiotic agents; Z88.0 Allergy status to penicillin; Z87.19 Personal history of other diseases of the digestive system
CPT/HCPCS: 36415; 80053; 80307; 80320; 83690; 83735; 84100; 85025; 85610; 86850; 86900; 88305; 93005; 96365; 96375; G0378; J2250; J2354; J2405; J2704; J3010; U0005; C9113; G0480; J2060; J7030; U0003

== ENCOUNTER 2020-12-22 19:54 | Emergency (ER) | payer MEDICAID ==
[~2020-12-22] VITALS: Ht 180.3 cm; Wt 85.0 kg
[~2020-12-22 19:54] MED LIST changes: +OMEP-110 PO; +SUCR1ORA5 PO
--- NOTE | 2020-12-22 20:21 | NUR ---
PT BIBA. PER EMS PT HAS DRANK 2 PINTS OF VODKA AND NOW IS VOMITTING BLOOD. EMS REPORTS THE PT NORMALLY DRINKS 1 PINT OF VODKA AND HAS HX OF STOMACH ULCERS. PT RESTING IN [facility], MONITORING IN PLACE, NADAlisa AT THIS TIME, WCTM.
[2020-12-22 20:33] LABS: BASOPHILS % (AUTO) 1 % (0-1); EOSINOPHILS % (AUTO) 1 % (1-7); LYMPHOCYTES % (AUTO) 34 % (22-44); MEAN CORPUSCULAR HEMOGLOBIN 34.4 pg (27.5-34.5); MEAN CORPUSCULAR HGB CONC 35.2 g/dL (33.2-36.2); MEAN PLATELET VOLUME 7.9 fL (7.4-10.4); MONOCYTES % (AUTO) 16 % (2-9); NEUTROPHILS % (AUTO) 49 % (42-75); PLATELET COUNT 108 x10^3/uL (130-400); RED BLOOD COUNT 4.84 x10^6/uL (4.38-5.82); RED CELL DISTRIBUTION WIDTH 14.6 % (9.4-14.8)
[2020-12-22 20:45] LABS: ALANINE AMINOTRANSFERASE 128 U/L (12-78); ALBUMIN 3.7 g/dL (3.4-5.0); ANION GAP 7 mmol/L (5-15); BILIRUBIN, DIRECT 0.2 mg/dL (0.1-0.2); CALCIUM 8.1 mg/dL (8.5-10.1); CHLORIDE 96 mmol/L (98-107)
[2020-12-22 20:47] LABS: ALKALINE PHOSPHATASE 85 U/L (45-117); BILIRUBIN,INDIRECT 0.3 mg/dL (0.0-2.0); BILIRUBIN,TOTAL 0.5 mg/dL (0.2-1.0); TOTAL PROTEIN 7.7 g/dL (6.4-8.2)
--- NOTE | 2020-12-22 20:56 | NUR ---
REPORT TO EDWIN THOMSON.
--- NOTE | 2020-12-22 20:57 | NUR ---
RECEIVED FROM EDWIN LINDA
--- NOTE | 2020-12-22 21:00 | NUR ---
PT RESTING ON GURZAIN, DENIES NEEDS AT THIS TIME
--- NOTE | 2020-12-22 22:20 | NUR ---
ROAD TEST/PO CHALLENGE UNREMARKABLE PROVIDED WITH BUS PASS/CARE CHEST INFO/DETOX FACILITY INFO AND WALKED TO DISCHARGE
[2020-12-22 22:21] VITALS: BP 123/70
== END 2020-12-22 22:24 | disposition home or self-care (01) ==
LOC: ED 21:17
DX: K22.6 Gastro-esophageal laceration-hemorrhage syndrome (principal)
CPT/HCPCS: 36415; 80048; 80076; 80320; 82040; 85025; 86850; 86900; 99283; G0480

== ENCOUNTER 2020-12-31 06:32 | Emergency (ER) | payer MEDICAID ==
[~2020-12-31] VITALS: Ht 180.3 cm; Wt 84.0 kg
--- NOTE | 2020-12-31 06:46 | NUR ---
REPORT FROM EDWIN TAYLOR
--- NOTE | 2020-12-31 07:16 | NUR ---
PT SLEEPING ON GURNEY, RESPIRATIONS EVEN AND UNLABORED. VSS. CALL LIGHT WITHIN REACH
[2020-12-31 08:11] VITALS: BP 108/63
--- NOTE | 2020-12-31 08:11 | NUR ---
PT CONTINUES SLEEPING ON GURNEY, RESPIRATIONS EVEN AND UNLABORED. VSS. CALL LIGHT WITHIN REACH
--- NOTE | 2020-12-31 09:38 | NUR ---
PT ROADTEST & FAILED. UNSTEADY ON FEET. PT BREATHALYZED. ERP NOTIFIED. PT LAYING ON GURNEY, CALL LIGHT WITHIN REACH. NADN/VSS
--- NOTE | 2020-12-31 11:14 | NUR ---
PT RESTING IN BED. EQUAL CHEST RISE AND FALL OBSERVED. BED RAILS UP FOR SAFETY. NO ATTEMPTS TO GET OUT OF BED MADE.
== END 2020-12-31 12:00 | disposition home or self-care (01) ==
LOC: ED 06:39
DX: F10.129 Alcohol abuse with intoxication, unspecified (principal); R42 Dizziness and giddiness; Y90.0 Blood alcohol level of less than 20 mg/100 ml
CPT/HCPCS: 99283

== ENCOUNTER 2021-01-10 16:27 | Emergency (ER) | payer MEDICAID ==
[~2021-01-10] VITALS: Ht 167.6 cm; Wt 80.0 kg
[2021-01-10 17:31] LABS: BASOPHILS % (AUTO) 1 % (0-1); EOSINOPHILS % (AUTO) 3 % (1-7); LYMPHOCYTES % (AUTO) 33 % (22-44); MEAN CORPUSCULAR HEMOGLOBIN 34.2 pg (27.5-34.5); MEAN CORPUSCULAR HGB CONC 34.7 g/dL (33.2-36.2); MEAN PLATELET VOLUME 7.7 fL (7.4-10.4); MONOCYTES % (AUTO) 12 % (2-9); NEUTROPHILS % (AUTO) 51 % (42-75); PLATELET COUNT 209 x10^3/uL (130-400); RED BLOOD COUNT 4.67 x10^6/uL (4.38-5.82); RED CELL DISTRIBUTION WIDTH 15.3 % (9.4-14.8)
[2021-01-10 17:33] LABS: ALANINE AMINOTRANSFERASE 151 U/L (12-78); ALBUMIN 4.1 g/dL (3.4-5.0); ANION GAP 10 mmol/L (5-15); CALCIUM 8.2 mg/dL (8.5-10.1); CHLORIDE 118 mmol/L (98-107); CREATININE 1.18 mg/dL (0.7-1.3)
[2021-01-10 17:37] LABS: ALKALINE PHOSPHATASE 52 U/L (45-117); BILIRUBIN,TOTAL 0.3 mg/dL (0.2-1.0); TOTAL PROTEIN 7.7 g/dL (6.4-8.2)
--- NOTE | 2021-01-10 17:39 | NUR ---
Pt sleeping on SE[place] puri. Connected to monitors.
--- NOTE | 2021-01-10 18:45 | NUR ---
received report from EDWIN Hendrickson
--- NOTE | 2021-01-10 18:52 | NUR ---
Bedside report to EDWIN Ko, to assume full care. Pt rousable to verbal stimuli. Remains connected to all monitors. Awaiting fluid orders.
[2021-01-10] MEDS ORDERED: SODIUM CHLORIDE 0.9% 1,000ML IVBOLUS ONE ×2 (19:00→19:30)
--- NOTE | 2021-01-10 19:07 | NUR ---
LINE DIRECTOR: GRACIELA DONAHUE IN TO AMBULATE PATIENT. PT AMBULATORY WO ASSISTANCE.
--- NOTE | 2021-01-10 19:09 | NUR ---
pt able to stand steadily, ivf started and water given. pt resting on gurney, denies needs at this time.
[2021-01-10 19:53] VITALS: BP 102/57
--- NOTE | 2021-01-10 20:01 | NUR ---
pt easily arrousiable when this RN went into the room, pt is finishing up IVF, wanting another cup of water. water provided, pt resting on gurney, denies needs at this time.
--- NOTE | 2021-01-10 20:54 | NUR ---
Patient given discharge instructions and they have confirmed that they understand the instructions. Patient ambulatory with steady gait.
== END 2021-01-10 20:56 | disposition home or self-care (01) ==
LOC: ED 20:50
DX: F10.229 Alcohol dependence with intoxication, unspecified (principal); R94.5 Abnormal results of liver function studies; R51.9 Headache, unspecified; G92 Toxic encephalopathy; M54.2 Cervicalgia; I10 Essential (primary) hypertension; Z88.0 Allergy status to penicillin; Y90.0 Blood alcohol level of less than 20 mg/100 ml
CPT/HCPCS: 36415; 70450; 72125; 80053; 80320; 85025; 96360; 99285; J7030; G0480

== ENCOUNTER 2021-03-13 16:46 | Emergency (ER) | payer MEDICAID ==
[~2021-03-13] VITALS: Ht 177.8 cm; Wt 85.0 kg
[2021-03-13] MEDS ORDERED: DIPHENHYDRAMINE 25 MG CAPSULE PO ONE (17:30)
[2021-03-13] MEDS ORDERED: DIPHENHYDRAMINE 25 MG CAPSULE ONE (17:35)
[2021-03-13 17:37] VITALS: BP 112/78
[2021-03-13 17:56] LABS: BASOPHILS % (AUTO) 0 % (0-1); EOSINOPHILS % (AUTO) 2 % (1-7); LYMPHOCYTES % (AUTO) 37 % (22-44); MEAN CORPUSCULAR HEMOGLOBIN 31.1 pg (27.5-34.5); MEAN CORPUSCULAR HGB CONC 33.6 g/dL (33.2-36.2); MEAN PLATELET VOLUME 8.2 fL (7.4-10.4); MONOCYTES % (AUTO) 8 % (2-9); NEUTROPHILS % (AUTO) 53 % (42-75); PLATELET COUNT 184 x10^3/uL (130-400); RED BLOOD COUNT 5.37 x10^6/uL (4.38-5.82); RED CELL DISTRIBUTION WIDTH 13.8 % (9.4-14.8)
[2021-03-13 17:57] LABS: ANION GAP 6 mmol/L (5-15); CALCIUM 8.4 mg/dL (8.5-10.1); CHLORIDE 110 mmol/L (98-107)
--- NOTE | 2021-03-13 18:00 | NUR ---
PT BIB EMS FOR SOB AND DIFFICULTY BREATHING. "IT FEELS LIKE SOMEONE IS SITTING ON MY CHEST". PT ALSO REPORTS NIGHT SWEATS, COUGHING UP PINK SPUTUM, AND LOSS OF WEIGHT. PT RESTING IN RNEY. EKG COMPELTE. CONNECTED TO MONITORS. PT ALSO REPORTS NEW REDNESS AND IRRITATION TO FOREARMS FROM [facility] CARDIAC LEADS. PT MEDICATED PER MAR
[2021-03-13 18:02] LABS: ALANINE AMINOTRANSFERASE 32 U/L (12-78); ALKALINE PHOSPHATASE 65 U/L (45-117); BILIRUBIN,TOTAL 0.8 mg/dL (0.2-1.0); CREATININE 1.03 mg/dL (0.7-1.3); TOTAL PROTEIN 7.8 g/dL (6.4-8.2)
--- NOTE | 2021-03-13 19:47 | NUR ---
PT SWABBED PER MD ORDER AND WALKED TO LAB. PT GIVEN F/U AND D/C INSTRUCTIONS AND HE V/U. PT AMBULATED TO DISCHARGE.
== END 2021-03-13 19:48 | disposition home or self-care (01) ==
LOC: ED 19:28
DX: F10.20 Alcohol dependence, uncomplicated (principal); Z72.9 Problem related to lifestyle, unspecified; Z20.822 Contact with and (suspected) exposure to COVID-19; R94.31 Abnormal electrocardiogram [ECG] [EKG]; I10 Essential (primary) hypertension; Y90.0 Blood alcohol level of less than 20 mg/100 ml
CPT/HCPCS: 36415; 71045; 80053; 80320; 82728; 83615; 85025; 93005; 99285; Q0163; U0003; U0005; G0480

== ENCOUNTER 2021-03-14 19:21 | Emergency (ER) | payer MEDICAID ==
[~2021-03-14] VITALS: Ht 175.3 cm; Wt 79.4 kg
[2021-03-14 20:10] LABS: BASOPHILS % (AUTO) 0 % (0-1); EOSINOPHILS % (AUTO) 3 % (1-7); LYMPHOCYTES % (AUTO) 24 % (22-44); MEAN CORPUSCULAR HEMOGLOBIN 30.8 pg (27.5-34.5); MEAN CORPUSCULAR HGB CONC 33.5 g/dL (33.2-36.2); MEAN PLATELET VOLUME 8.4 fL (7.4-10.4); MONOCYTES % (AUTO) 11 % (2-9); NEUTROPHILS % (AUTO) 63 % (42-75); PLATELET COUNT 186 x10^3/uL (130-400); RED BLOOD COUNT 5.37 x10^6/uL (4.38-5.82); RED CELL DISTRIBUTION WIDTH 13.5 % (9.4-14.8)
[2021-03-14 20:20] LABS: ANION GAP 3 mmol/L (5-15); CHLORIDE 103 mmol/L (98-107)
[2021-03-14 20:24] LABS: ALANINE AMINOTRANSFERASE 37 U/L (12-78); ALKALINE PHOSPHATASE 71 U/L (45-117); BILIRUBIN,TOTAL 1.4 mg/dL (0.2-1.0); CREATININE 1.24 mg/dL (0.7-1.3); TOTAL PROTEIN 7.8 g/dL (6.4-8.2)
[2021-03-14 22:14] VITALS: BP 140/89
== END 2021-03-14 23:06 | disposition home or self-care (01) ==
LOC: ED 19:31
DX: K29.20 Alcoholic gastritis without bleeding (principal); J06.9 Acute upper respiratory infection, unspecified; B34.9 Viral infection, unspecified; F17.210 Nicotine dependence, cigarettes, uncomplicated; Z72.9 Problem related to lifestyle, unspecified; I10 Essential (primary) hypertension
CPT/HCPCS: 36415; 80053; 85025; 93005; 99284

== ENCOUNTER 2021-04-13 07:27 | Emergency (ER) | payer MEDICAID ==
[~2021-04-13] VITALS: Ht 180.3 cm; Wt 85.0 kg
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
[2021-04-13] MEDS ORDERED: ONDANSETRON ODT 4 MG ONE (09:17)
[2021-04-13] MEDS ORDERED: MAALOX/HYOSCYAMINE/LIDOCAINE 45 ML BTL ONE (09:19)
[2021-04-13] MEDS ORDERED: FAMOTIDINE 20 MG TABLET ONE (09:19)
--- NOTE | 2021-04-13 09:25 | NUR ---
PT MEDICATED PER ORDER. PT V/S STABLE AT THIS TIME. PT HAS NOT VOMITED SINCE HE'S BEEN HERE.
[2021-04-13] MEDS ORDERED: ONDANSETRON ODT 4 MG PO ONE ×2 (09:30)
[2021-04-13] MEDS ORDERED: MAALOX/HYOSCYAMINE/LIDOCAINE 45 ML BTL PO ONE (09:30)
[2021-04-13] MEDS ORDERED: FAMOTIDINE 20 MG TABLET PO ONE (09:30)
[2021-04-13 09:58] LABS: MEAN CORPUSCULAR HEMOGLOBIN 30.5 pg (27.5-34.5); MEAN CORPUSCULAR HGB CONC 33.6 g/dL (33.2-36.2); MEAN PLATELET VOLUME 7.4 fL (7.4-10.4); PLATELET COUNT 168 x10^3/uL (130-400); RED BLOOD COUNT 5.79 x10^6/uL (4.38-5.82); RED CELL DISTRIBUTION WIDTH 14.3 % (9.4-14.8)
[2021-04-13 10:10] LABS: ALANINE AMINOTRANSFERASE 38 U/L (12-78); ALBUMIN 3.9 g/dL (3.4-5.0); ANION GAP 8 mmol/L (5-15); CALCIUM 7.9 mg/dL (8.5-10.1); CHLORIDE 106 mmol/L (98-107)
[2021-04-13 10:13] LABS: ALKALINE PHOSPHATASE 75 U/L (45-117); BILIRUBIN,TOTAL 0.9 mg/dL (0.2-1.0); CREATININE 0.78 mg/dL (0.7-1.3); TOTAL PROTEIN 7.6 g/dL (6.4-8.2)
[2021-04-13 10:32] LABS: <PLATELET ESTIMATE> ADEQUATE; <PLT MORPHOLOGY> NORMAL PLT MORPH; <RBC MORPHOLOGY> NORMAL; EOS#(MANUAL) 0.17 x10^3/uL (0.0-0.4); EOS% (MANUAL) 3 % (1-7); LYMPH#(MANUAL) 1.88 x10^3/uL (1-3.4); LYMPHS% (MANUAL) 33 % (22-44); MONOS% (MANUAL) 7 % (2-9); SEG#(MANUAL) 3.25 x10^3/uL (1.8-6.8); SEGS% (MANUAL) 57 % (42-75)
[2021-04-13 11:08] VITALS: BP 122/79
--- NOTE | 2021-04-13 11:09 | NUR ---
PT RESTING ON LopezWINK. VSS. PO CHALLENGE TOLERATED
== END 2021-04-13 11:35 | disposition home or self-care (01) ==
LOC: ED 07:33
DX: K29.20 Alcoholic gastritis without bleeding (principal); F10.10 Alcohol abuse, uncomplicated; R10.13 Epigastric pain; R11.2 Nausea with vomiting, unspecified; I10 Essential (primary) hypertension; Z88.0 Allergy status to penicillin; Y90.0 Blood alcohol level of less than 20 mg/100 ml
CPT/HCPCS: 36415; 71045; 80053; 83690; 85025; 93005; 99285; Q0162

== ENCOUNTER 2021-04-13 20:58 | Emergency (ER) | payer MEDICAID ==
[~2021-04-13] VITALS: Ht 177.8 cm; Wt 74.0 kg
[2021-04-13 21:45] LABS: BASOPHILS % (AUTO) 1 % (0-1); EOSINOPHILS % (AUTO) 1 % (1-7); LYMPHOCYTES % (AUTO) 35 % (22-44); MEAN CORPUSCULAR HEMOGLOBIN 30.9 pg (27.5-34.5); MEAN CORPUSCULAR HGB CONC 34.2 g/dL (33.2-36.2); MEAN PLATELET VOLUME 7.4 fL (7.4-10.4); MONOCYTES % (AUTO) 10 % (2-9); NEUTROPHILS % (AUTO) 53 % (42-75); PLATELET COUNT 175 x10^3/uL (130-400); RED BLOOD COUNT 5.85 x10^6/uL (4.38-5.82); RED CELL DISTRIBUTION WIDTH 14.1 % (9.4-14.8)
[2021-04-13 21:49] LABS: ALANINE AMINOTRANSFERASE 46 U/L (12-78); ALBUMIN 4.3 g/dL (3.4-5.0); ANION GAP 9 mmol/L (5-15); CALCIUM 8.6 mg/dL (8.5-10.1); CHLORIDE 103 mmol/L (98-107)
[2021-04-13 21:50] LABS: ALKALINE PHOSPHATASE 86 U/L (45-117); BILIRUBIN,TOTAL 1.1 mg/dL (0.2-1.0); TOTAL PROTEIN 8.5 g/dL (6.4-8.2)
--- NOTE | 2021-04-13 21:52 | NUR ---
pt to room from lobby
[2021-04-13 22:06] VITALS: BP 131/76
== END 2021-04-13 22:35 | disposition home or self-care (01) ==
LOC: ED 21:03
DX: F10.120 Alcohol abuse with intoxication, uncomplicated (principal); Y90.9 Presence of alcohol in blood, level not specified; I10 Essential (primary) hypertension
CPT/HCPCS: 36415; 80053; 80320; 83690; 85025; 99283; G0480